=== PATIENT | male | born 1960 | race Caucasian/White ===

== ENCOUNTER 2020-07-20 09:00 | Observation (INO) | payer MEDICAID, SELFPAY ==
[2020-07-20] VITALS (13 sets, daily range): BP systolic 113–149; BP diastolic 66–95; PULSE 100–126; RESP 18; TEMP 36.2–36.9; O2SAT 96–100; BMI 26.9; BMI 26.5
--- NOTE | 2020-07-20 09:15 | CT_ITS ---
STUDY: CT ABDOMEN AND PELVIS WITHOUT CONTRAST REASON FOR EXAM: Male, 60 years old. 1 1/2 week history of right flank pain and hematuria. RADIATION DOSAGE (If Supplied By Facility): CTDIvol = ( 7.33 ) mGy, DLP = ( 373.78 ) mGycm TECHNIQUE: Transaxial images were obtained from the dome of the diaphragm to the symphysis pubis without oral contrast, and without intravenous contrast. Sagittal and coronal images were reconstructed. Individualized dose optimization techniques were used for this CT. COMPARISON: None. FINDINGS: The visualized lung bases are unremarkable. Coronary artery calcification. There is decreased attenuation of the liver consistent with steatosis. There is a tiny solitary gallstone. There is a benign calcified granuloma of the spleen. There are pancreatic calcifications in the distribution of the ducts consistent with chronic pancreatitis. Normal bilateral adrenal glands. Normal right kidney. Normal left kidney. There is a small hiatal hernia. Normal small intestine. There are scattered colonic diverticula consistent with diverticulosis. The appendix is visualized and appears normal. There is diffuse atherosclerotic calcification of the abdominal aorta, without a demonstrated aneurysm. Normal inferior vena cava. Normal retroperitoneum. There is a 6.1 cm x 7.9 cm x 5.5 cm hyper attenuation mass at the base of the bladder. A neoplastic process should be ruled out. There are prostatic calcifications. There is a right-sided inguinal hernia containing adipose tissue. Normal osseous structures. CT/Abdomen/Pelvis without Cont IMPRESSION: Large mass in the bladder. A neoplastic process should be ruled out. Fatty infiltration of the liver. Tiny solitary gallstone. Electronically Signed: Pedro Luis Roque MD at 9:55 EDT , Service support ,
--- NOTE | 2020-07-20 09:16 | ED.DCSUM_ITS ---
- ER Visit Summary Date of Service: 07/20/20 Chief Complaint: [Right-sided flank pain] History of Present Illness: The patient is a 60 M [presents to the emergency department complaint of right-sided flank pain that started about a month ago. Patient states the pains been intermittent. Patient's had intermittent hematuria for couple of weeks. Patient states the pain at times is sharp and stabbing at times he feels it in his back. Patient's passing blood in his urine and this morning had some clots noted. He denies any fever. He denies weight loss. Patient was a smoker years ago but has quit. No family history of kidney or bladder cancer. Patient does describe at times frequency, urgency, and dysuria. History of coronary artery disease, hypertension, and high cholesterol. Patient is currently on aspirin and Plavix.] Physical Examination: [HEENT-PERRLA, EOMI. Cranial nerves II through XII grossly intact. TMs clear. Mucous membranes moist. No adenopathy. Cardiovascular-regular rate and rhythm without murmur or ectopy Lungs-clear to auscultation, chest wall stable without crepitus or subcu emphysema Abdomen-normoactive bowel sounds, soft. Patient does have some tenderness palpation over the right lower quadrant. There is no rebound, rigidity, or yessica toneal signs. No masses palpated. No significant CVA tenderness on exam. Extremities-intact ?4, normal range of motion, normal pulses, atraumatic] Test Results: [CBC with differential obtained show normal white count of 15.6, hemoglobin 6.6, hematocrit 20, placed 282. Chemistry showed a sodium 128, potassium 4.0, chloride 97, CO2 23, BUN 26 and creatinine 2.14. Urinalysis was positive for more than 100 RBCs but no signs of infection. CT flank showed a 6.1 x 7.9 x 5.5 cm bladder mass] Emergency Department Course and Treatment: [ IV line established on arrival. Patient was typed and screened. Case discussed with hospitalist who will admit patient. I consulted urology.] Treatment Plan: Admit [] Disposition: [Admit] Impression: [Anemia Bladder mass Hematuria Renal insufficiency] This note was generated with [employer] software. It may contain incorrect words, spelling, and punctuation that were not noted in review of the chart prior to signing ED Disposition - Plan for ED Patient: Referrals: Gregg Prabhakar DO [Primary Care Provider] -
[2020-07-20 09:29] LABS: Bacteria 0 SEEN /hpf (None Seen); Mucous, Urine 0 SEEN /hpf (<or=2+); Squamous Epithelial Cells - UA 0 SEEN /hpf (0-5); White Blood Cells 0 SEEN /hpf (0-5)
[2020-07-20] MEDS: 0.9% Normal Saline 1,000 ML 125 ML IV (09:31)
[2020-07-20 09:32] LABS: Color, Urine Red (Yellow); Glucose, Dipstick Normal (Normal); Ketone-Dipstick 15 mg/dl (Negative); Leukocyte Esterase-Dipstick Negative /ul (Negative); Nitrite-Dipstick Negative (Negative); Occult Blood-Urine 250 /ul (Negative); Protein-Dipstick 500 mg/dl (Negative); Urine Bilirubin Dipstick Negative (Negative); Urine Clarity Turbid (Clear); Urine Urobilinogen Normal (Normal)
[2020-07-20 09:40] LABS: Red Blood Cells-Urine > 100 SEEN /hpf (0-5)
[2020-07-20 09:43] LABS: Absolute Lymphocyte Count 2.92 X10^3/uL (0.83-4.51); Absolute Neutrophil Count 10.3 X10^3/uL (2.0-7.7); Basophil# 0.05 X10^3/uL; Basophil% 0.3 % (0-1); Eosinophil# 0.02 X10^3/uL; Eosinophils% 0.1 % (0-5); Hematocrit 20.3 % (40-54); Hemoglobin 6.6 g/dL (13.0-16.5); Lymphocyte # 2.92 X10^3/ul (4.0); Lymphocyte % 18.7 % (19-41); Mean Corp Hgb Conc 32.5 g/dL (32-36); Mean Corpuscular Volume 95.3 fL (80-94); Mean Platelet Vol. 9.9 fl (6.2-12.0); Monocyte# 2.02 X10^3/uL; Monocyte% 12.9 % (0-10); NRBC Flagged by Analyzer 0 % (0-5); Neutrophil # 10.25 X10^3/uL (2.7-7.7); Neutrophil % 65.8 % (47-70); POSITIVE DIFFERENTIAL YES; Platelet Count 282 K/mm3 (150-450); RBC Distribution Width CV 14.5 % (11.6-14.6); RBC Distribution Width SD 49.6 fl (35.1-43.9); Red Blood Count 2.13 M/mm3 (4.6-6.2); White Blood Count 15.6 K/mm3 (4.4-11.0)
[2020-07-20 09:52] LABS: Differential Indicated SCAN CRITERIA MET
[2020-07-20 09:56] LABS: Anion Gap 8 (5-15); BUN 26 mg/dL (7-18); BUN/Creat Ratio 12.1 RATIO (10-20); Calcium,Total 9.1 mg/dL (8.5-10.1); Chloride 97 mmol/L (98-107); Creatinine, Serum 2.14 mg/dL (0.70-1.30); EST Glomerular Filtration Rate 34 mL/min (>60); Est Glom Filt Rate - Afr Amer 41 mL/min (>60); Estimated Creatinine Clearance 33.54 ml/min; Glucose 169 mg/dL (74-106); Sodium Level 128 mmol/L (136-145)
[2020-07-20 10:03] LABS: Differential Comment SCANNED
--- NOTE | 2020-07-20 10:45 | HP.PCM_ITS ---
Problem List (1) Bladder mass Status: Acute (2) Hematuria Status: Acute Qualifiers: Hematuria type: gross Qualified Code(s): R31.0 - Gross hematuria (3) Severe anemia Status: Acute (4) CAD (coronary artery disease) Status: Acute Qualifiers: Coronary Disease-Associated Artery/Lesion type: [place] artery [place] vs. transplanted heart: [place] heart Associated angina: without angina Qualified Code(s): I25.10 - Atherosclerotic heart disease of [place] coronary artery without angina pectoris History of Present Illness Date of Admission: 07/20/20 Chief Complaint: Hematuria - ongoing for 1 year, worse over the last 3 days The patient is a 60 year old M past medical history of CAD status post stent, on aspirin, Plavix who comes in with complaints of hematuria ongoing for more than a year, worse in the last 3 days. Patient states that he does not like to see a doctor. He last saw a physician physicially 3 years ago. He has been having intermittent hematuria ongoing for couple of days at a time. In the last 3 days, he has had gross hematuria. It was associated with right flank pain. He has been passing clots and his urine varies from light red to deep red. Denied any night sweats, weight loss, poor appetite. He denied any history of smoking. There is a family history of cancer. Vitals in the ED show temperature of 97.2F, heart rate 108, blood pressure 127/72, respiratory 18, SPO2 100% on room air. RBC count is 15.6, hemoglobin 6.6, platelet count is 282, sodium is 128, potassium 4.0, chloride 97, bicarbonate 23, BUN 26, creatinine 2.14. CT Abd/pelvis showed a large mass in bladder, 6.1cm?7.9cm x5.5cm at the base of the bladder. Past Medical History Allergies No Known Allergies Allergy (Verified 07/20/20 09:01) Home Medications: Ambulatory Orders Medication Instructions Recorded Aspirin [Aspirin, Baby] 81 mg PO DAILY@0800 07/20/20 Carvedilol 6.25 mg PO BID 07/20/20 Clopidogrel Bisulfate [Clopidogrel] 75 mg PO DAILY 07/20/20 Lisinopril 20 mg PO DAILY 07/20/20 Lovastatin 10 mg PO DAILY 07/20/20 Nitroglycerin 0.4 mg SL PRN PRN 07/20/20 Zolpidem Tartrate [Zolpidem 12.5 mg PO QHS 07/20/20 Tartrate ER] Surgical History: - - s/p cardiac stent Psychiatric History: No pertinent psych hx Lives: Spouse/ Significant Other Smoking Status: Former smoker Tobacco Use: Chew Alcohol: None Drugs: None - *Family History Maternal History Items: Cancer - uterine, breast Paternal History Items: Cancer, Diabetes Review of Systems Constitutional: Denies: Anorexia, Chills, Fever, Night Sweats, Malaise, Weakness, Weight Change, Fatigue Eyes: Denies: Blurred vision, Cataracts, Conjunctivae Inflammation, Pain, Redness HEENT: Denies: Difficulty Hearing, Difficulty Swallowing, Head Aches, Hearing Changes, Sinus Congestion, Sinus Drainage Cardiovascular: Denies: Chest Pain, Claudication, Orthopnea, Palpitations, Paroxysmal Noc. Dyspnea, Syncope Respiratory: Denies: Cough, Hemoptysis, Shortness of breath at rest, Shortness of breath upon exertion, Sputum production Gastrointestinal: Denies: Abdominal Pain, Constipation, Hematemesis, Hematochezia, Nausea, Vomiting Genitourinary: Reports: Frequency, Hematuria. Denies: Dysuria Musculoskeletal: Denies: Joint Pain, Joint stiffness, Joint swelling, Joint Tenderness Skin: Denies: Rash, Wounds Neurological: Denies: Difficulty swallowing, Focal weakness, Numbness, Tingling Psychiatric: Denies: Anxiety, Depression, Homicidal Ideations, Suicidal Ideations Hematologic/ Lymphatic: Denies: Easy Bruising, Easy Bleeding VTE Information - Inpt Only VTE Present on Admission: No VTE Pharm Prophylaxis ordered?: Yes Patient Problems: Active and Suspected Problems Bladder mass (Acute) Hematuria (Acute) Severe anemia (Acute) CAD (coronary artery disease) (Acute) Objective: Physical exam: General: Alert, Oriented x3, Cooperative, No apparent distress, Well developed HEENT: Atraumatic Oral: Moist Mucosa Neck: Supple Lungs: Clear to auscultation Cardiovascular: HS I+II, regular, no murmurs Abdomen: Bowel Sounds Present, Soft, Non Tender Extremities: No edema Skin: No rashes, No breakdown Neurological: Grossly intact Psych/Mental Status: Appropriate - Physical Exam Vitals/I&O's: Vital Signs Temp Pulse Resp BP Pulse Ox 97.2 F L 100 18 127/73 H 100 07/20/20 09:30 07/20/20 09:30 07/20/20 09:30 07/20/20 09:30 07/20/20 09:30 Weight: 75.75 kg Body Mass Index (BMI) 26.9 General: Alert, Oriented x3, Cooperative, No apparent distress HEENT: Atraumatic, PERRLA, EOMI, Normocephalic Oral: Moist Mucosa Neck: Supple Lungs: Clear to auscultation, Normal air movement Cardiovascular: Regular rate, Regular Rhythm, Normal S1, Normal S2, No murmurs Abdomen: Bowel Sounds Present, Soft, Non Tender, Non-Distended, No Hepato- splenomegaly Extremities: No edema Skin: No rashes Musculoskeletal: No Tenderness to Palpation of Joints or Extremities Lymphatic: No Cervical, Supraclavicular, or Inguinal Adenopathy Neurological: Neuro grossly intact Psych/Mental Status: Normal Affect, Appropriate Laboratory Results 07/20/20 09:25: Urine Color Red, Urine Clarity Turbid, Urine pH 7.0, Ur Specific [place] 1.010, Urine Protein 500 H, Urine Glucose (UA) Normal, Urine Ketones 15 H, Urine Occult Blood 250 H, Urine Nitrite Negative, Urine Bilirubin Negative, Urine Urobilinogen Normal, Ur Leukocyte Esterase Negative, Urine RBC > 100 SEEN, Urine WBC 0 SEEN, Ur Squamous Epith Cells 0 SEEN, Urine Bacteria 0 SEEN, Urine Mucus 0 SEEN 07/20/20 09:30: WBC 15.6 H, RBC 2.13 L, Hgb 6.6 L, Hct 20.3 L, MCV 95.3 H, MCH 31.0, MCHC 32.5, RDW Std Deviation 49.6 H, RDW Coeff of [place] 14.5, Plt Count 282, MPV 9.9, Immature Gran % (Auto) 2.200 H, Neut % (Auto) 65.8, Lymph % (Auto) 18.7 L, [place] % (Auto) 12.9 H, Eos % (Auto) 0.1, Baso % (Auto) 0.3, Absolute Neuts (auto) 10.3 H, Absolute Lymphs (auto) 2.92, Nucleated RBC % 0, Differential Comment SCANNED, Diff Path Review August07/20/20 09:30: Sodium 128 L, Potassium 4.0, Chloride 97 L, Carbon Dioxide 23.0, Anion Gap 8, BUN 26 H, Creatinine 2.14 H, Estim Creat Clear Calc 33.54, Est GFR (MDRD) Af Amer 41 L, Est GFR (MDRD) Non-Af 34 L, BUN/Creatinine Ratio 12.1, Glucose 169 H, Calcium 9.1 Current Medications Sodium Chloride () 1,000 mls @ 125 mls/hr IV .Q8H [facility] Last Admin: 07/20/20 09:31 Dose: 125 mls/hr Documented by: Assessment/Plan All Active Problems Bladder mass (Acute) Hematuria (Acute) Severe anemia (Acute) CAD (coronary artery disease) (Acute) 1. Gross hematuria secondary to large bladder mass likely malignant, CT abd/pelvis showed bladder base mass Discussed with urology; commend transfer to tertiary center Will hold aspirin and Plavix, transferred to [facility] 2. Severe anemia secondary to acute blood loss and hematuria, Hb is 6.6 Will transfuse 2 units of pRBC 3. CAD status post stent/Hypertension/hyperlipidemia, on aspirin and Plavix 4. EDUARDO on CKD stage 3a, admitting creatinine is 2.14, previous creatinine is 1.23 Will need to be trended 5. Acute hyponatremia, Na 128, will need to trend 6. DVT PPx- SCDs Inpatient E&M: 81961 Init Hosp L3
--- NOTE | 2020-07-20 12:07 | CASEMGMT ---
According to the [facility] website, the following are in-network tertiary facilities: [facility], [facility], [facility], [facility], [facility], [facility], [facility], [place], [facility], and . Larry GRIER CM
--- NOTE | 2020-07-20 18:00 | NURSING ---
patient leaving AMA at this time. Gave patient copy of signed AMA sheet and second copy placed in chart. Notified MD and art gallery internship
--- NOTE | 2020-07-21 07:10 | PCM.DC.SUM ---
Discharge Date and Diagnosis - Problem List Patient Problems: Active and Suspected Problems Bladder mass (Acute) Hematuria (Acute) Severe anemia (Acute) Date of Admission: 07/20/20 Date of Discharge: 07/20/20 - Primary Discharge Diagnosis Acute Problems: Active Problems Bladder mass (Acute) Hematuria (Acute) Severe anemia (Acute) EDUARDO on CKD stage 3, unspecified Hospital Course and Treatment Imaging Results: Clinical Impression(s) from Imaging Studies Abdomen/Pelvis CT 07/20/20 09:15 IMPRESSION: Large mass in the bladder. A neoplastic process should be ruled out. Fatty infiltration of the liver. Tiny solitary gallstone. Electronically Signed: Pedro Luis Roque MD at 9:55 EDT , Service support , Operations: None Procedures: None Summary of Care Provided: 60 year old M with past medical history of CAD status post stent, on aspirin, Plavix who comes in with complaints of hematuria ongoing for more than a year, worse in the last 3 days. Patient states that he does not like to see a doctor. He last saw a physician physically 3 years ago. He has been having intermittent hematuria ongoing for couple of days at a time. In the last 3 days, he has had gross hematuria. It was associated with right flank pain. He has been passing clots and his urine varies from light red to deep red. Denied any night sweats, weight loss, poor appetite. He denied any history of smoking. In the ED, his vitals showed tachycardia but otherwise stable. WBC count is 15.6, hemoglobin 6.6, platelet count is 282, sodium is 128, potassium 4.0, chloride 97, bicarbonate 23, BUN 26, creatinine 2.14. Previous creatinine in [address]/pelvis showed a large mass in bladder, 6.1cm?7.9cm x5.5cm at the base of the bladder. Discussed with urology, patient was recommended to be transferred to tertiary facility. He was transfused 2 units of pRBC. He was accepted by [facility]. Patient however refused to be transferred because he did not want further evaluation and thinks he has cancer for sure. He was educated and encouraged to get a second opinion from the urologist in the [facility]. Further discussions were made at the bedside with his . He finished his blood transfusion and got him discharged . Patient Problems: Active and Suspected Problems Bladder mass (Acute) Hematuria (Acute) Severe anemia (Acute) Subjective: see H & P Objective: see H & P - Physical Exam Vitals/I&O's: Vital Signs Temp Pulse Resp BP Pulse Ox 98.0 F 126 H 18 149/91 H 99 07/20/20 18:00 07/20/20 18:00 07/20/20 18:00 07/20/20 18:00 07/20/20 18:00 Oxygen Delivery Method Room Air Weight: 74.5 kg Body Mass Index (BMI) 26.5 Intake and Output for Last 24 Hours 07/19/20 07/20/20 07/21/20 23:59 23:59 23:59 Intake Total 1558.75 / 1558.75 Balance 1558.75 / 1558.75 Laboratory Results 07/20/20 09:25: Urine Color Red, Urine Clarity Turbid, Urine pH 7.0, Ur Specific [place] 1.010, Urine Protein 500 H, Urine Glucose (UA) Normal, Urine Ketones 15 H, Urine Occult Blood 250 H, Urine Nitrite Negative, Urine Bilirubin Negative, Urine Urobilinogen Normal, Ur Leukocyte Esterase Negative, Urine RBC > 100 SEEN, Urine WBC 0 SEEN, Ur Squamous Epith Cells 0 SEEN, Urine Bacteria 0 SEEN, Urine Mucus 0 SEEN 07/20/20 09:30: WBC 15.6 H, RBC 2.13 L, Hgb 6.6 L, Hct 20.3 L, MCV 95.3 H, MCH 31.0, MCHC 32.5, RDW Std Deviation 49.6 H, RDW Coeff of [place] 14.5, Plt Count 282, MPV 9.9, Immature Gran % (Auto) 2.200 H, Neut % (Auto) 65.8, Lymph % (Auto) 18.7 L, [place] % (Auto) 12.9 H, Eos % (Auto) 0.1, Baso % (Auto) 0.3, Absolute Neuts (auto) 10.3 H, Absolute Lymphs (auto) 2.92, Nucleated RBC % 0, Differential Comment SCANNED, Diff Path Review August07/20/20 09:30: Sodium 128 L, Potassium 4.0, Chloride 97 L, Carbon Dioxide 23.0, Anion Gap 8, BUN 26 H, Creatinine 2.14 H, Estim Creat Clear Calc 33.54, Est GFR (MDRD) Af Amer 41 L, Est GFR (MDRD) Non-Af 34 L, BUN/Creatinine Ratio 12.1, Glucose 169 H, Calcium 9.1 07/20/20 11:00: Blood Type A POSITIVE, Antibody Screen NEGATIVE 07/20/20 11:00: Crossmatch See Detail Discharge Diet: Low fat/ Low Cholesterol, 2000 mg Sodium Diet Discharge Activity: Return to Normal Activity Home Medications: Medications to take at Discharge Aspirin [Aspirin, Baby] 81 mg PO DAILY@0800 07/20/20 Carvedilol 6.25 mg PO BID 07/20/20 Clopidogrel Bisulfate [Clopidogrel] 75 mg PO DAILY 07/20/20 Lisinopril 20 mg PO DAILY 07/20/20 Lovastatin 10 mg PO DAILY 07/20/20 Nitroglycerin 0.4 mg SL PRN PRN 07/20/20 Zolpidem Tartrate [Zolpidem Tartrate ER] 12.5 mg PO QHS 07/20/20 Primary Care Physician: Gregg Prabhakar DO [Primary Care Provider] - Disposition: Against Medical Advice Minutes spent on discharge:: 25 Patient Condition:: Fair Medical Necessity - Tobacco Use Smoking Status: Former smoker Tobacco Use: Chew Meaningful Use Info Meaningful Use Diagnoses (Choose all that apply): None applicable OBSV E&M: 50164 Observ/hosp same date L1
[2020-07-21 11:43] LABS: Pathologist Review Reviewed
== END 2020-07-20 18:02 | disposition left against medical advice (07) ==
LOC: ED 09:55 → PCU 07-22 12:34
PROVIDERS: Admitting Provider Internal Medicine; Emergency Provider Emergency Medicine; PCP Family Medicine; Visit Provider Internal Medicine
DX: N32.9 Bladder disorder, unspecified (principal); N17.9 Acute kidney failure, unspecified; D62 Acute posthemorrhagic anemia; E78.5 Hyperlipidemia, unspecified; N18.31 Chronic kidney disease, stage 3a; E87.1 Hypo-osmolality and hyponatremia; I25.10 Atherosclerotic heart disease of native coronary artery without angina pectoris; R31.0 Gross hematuria; I12.9 Hypertensive chronic kidney disease with stage 1 through stage 4 chronic kidney disease, or unspecified chronic kidney disease; Z79.899 Other long term (current) drug therapy; Z79.02 Long term (current) use of antithrombotics/antiplatelets; Z79.82 Long term (current) use of aspirin; Z95.5 Presence of coronary angioplasty implant and graft; Z87.891 Personal history of nicotine dependence
CPT/HCPCS: 36430; 74176; 80048; 81001; 85025; 86850; 86900; 86901; 86920; 86922; 96360; 96361; 97802; 99218; 99285; 99406; J7030; P9016; G0378

== ENCOUNTER → 2020-07-27 10:04 | Outpatient (CLI) | payer MEDICAID, SELFPAY ==
[2020-07-20 11:38] VITALS: BMI 26.5
[2020-07-27 12:22] LABS: Absolute Lymphocyte Count 2.43 X10^3/uL (0.83-4.51); Absolute Neutrophil Count 7.9 X10^3/uL (2.0-7.7); Basophil# 0.05 X10^3/uL; Basophil% 0.4 % (0-1); Eosinophil# 0.21 X10^3/uL; Eosinophils% 1.7 % (0-5); Hematocrit 37.2 % (40-54); Hemoglobin 11.9 g/dL (13.0-16.5); Lymphocyte # 2.43 X10^3/ul (0.83-4.51); Lymphocyte % 19.4 % (19-41); Mean Corpuscular Hgb 30.2 pg (27.0-32.0); Mean Corpuscular Volume 94.4 fL (80-94); Mean Platelet Vol. 9.6 fl (6.2-12.0); Monocyte# 1.79 X10^3/uL; Monocyte% 14.3 % (0-10); NRBC Flagged by Analyzer 0 % (0-5); POSITIVE DIFFERENTIAL YES; Platelet Count 340 K/mm3 (150-450); RBC Distribution Width CV 13.8 % (11.6-14.6); Red Blood Count 3.94 M/mm3 (4.6-6.2); White Blood Count 12.5 K/mm3 (4.4-11.0)
[2020-07-27 12:24] LABS: Differential Indicated SCAN CRITERIA MET
[2020-07-27 12:30] LABS: Anion Gap 5 (5-15); BUN 26 mg/dL (7-18); BUN/Creat Ratio 14.1 RATIO (10-20); Calcium,Total 10.2 mg/dL (8.5-10.1); Chloride 104 mmol/L (98-107); Creatinine, Serum 1.85 mg/dL (0.70-1.30); EST Glomerular Filtration Rate 40 mL/min (>60); Est Glom Filt Rate - Afr Amer 48 mL/min (>60); Glucose 68 mg/dL (74-106); Potassium 4.5 mmol/L (3.5-5.1); Sodium Level 138 mmol/L (136-145)
[2020-07-28 14:08] LABS: Pathologist Review Reviewed
== END ==
PROVIDERS: PCP Family Medicine; Referring Provider Family Medicine; Visit Provider Family Medicine
DX: D50.0 Iron deficiency anemia secondary to blood loss (chronic) (principal); N17.9 Acute kidney failure, unspecified
CPT/HCPCS: 36415; 80048; 85025